=== PATIENT | male | born 1985 | race Caucasian/White ===

== ENCOUNTER 2017-02-03 05:57 | Day surgery (SDC) | payer OTHER, MEDICAID ==
[~2017-02-03] VITALS: Ht 177.8 cm; Wt 92.4 kg
[~2017-02-03 05:57] MED LIST: AMPH20CA PO; BENZ2AMP2 PO; DIVA500T4 PO; DIVA500T55 PO; FLUV100T2 PO; FLUV50TA2 PO; LORA10TA7 PO; NEOM30OI18 TOP; QUET100T PO; RISP2TAB22; SODI30SP3; [UNRECOGNIZED DRUG - CODE] TOP
--- OUTSIDE RECORDS SUMMARY | 2017-02-03 06:01 | XMS REPORT | Continuity of Care Document ---
Author Author [facility] Organization [facility] Address Unknown Phone Unavailable Allergies Active Description Code Type Severity Reaction Onset Reported/Identified Relationship to Patient Clinical Status Yes CECLOR CECLOR Drug Allergy Unknown RASH/SWELLING 01/09/2009 Yes NO KNOW CONTRAST MEDIA ALLERGY NO KNOW CONTRAST MEDIA ALLERGY Drug Allergy Unknown N/A 2008 Yes No Known Food Allergies No Known Food Allergies Drug Allergy Unknown N/A 01/09/2009 Yes No Known Other Allergies No Known Other Allergies Drug Allergy Unknown N/A 01/09/2009 Yes ORAP ORAP Drug Allergy Unknown RASH 01/09/2009 Yes SULFA DRUGS SULFA DRUGS Drug Allergy Unknown REDNESS/ SWELLING 01/09/2009 Yes ZOLOFT ZOLOFT Drug Allergy Unknown N/A 01/09/2009 Yes Sulfa (Sulfonamide Antibiotics Drug Allergy UNKNOWN 06/01/2011 Yes Sulfa (Sulfonamide Antibiotics Drug Allergy N/A UNKNOWN 06/01/2011 Yes cefaclor cefaclor Drug Allergy Unknown N/A 09/01/2012 Yes pimozide pimozide Drug Allergy Unknown N/A 09/01/2012 Yes sertraline HCl sertraline HCl Drug Allergy Unknown N/A 09/01/2012 Yes Sulfa (Sulfonamide Antibiotics) Sulfa (Sulfonamide Antibiotics) Drug Allergy Unknown N/A 09/01 Yes Ceclor Drug Allergy Eczema (rash) 11/02/2012 Yes Ceclor Drug Allergy N/A Eczema (rash) 11/02/2012 Yes No Known Food Allergies Food Allergy 11/02/2012 Yes No Known Food Allergies Food Allergy N/A N/A 11/02/2012 Yes cefaclor NKMA N/A Eczema (rash) 02/21/2014 Yes sulfamethoxazole NKMA N/A UNKNOWN 02/21/2014 Yes Sulfa (Sulfonamide Antibiotics) Sulfa (Sulfonamide Antibiotics) Drug Allergy Mild RASH 2015 Yes cefaclor cefaclor Drug Allergy Unknown RASH 11/12/2015 Yes pimozide pimozide Drug Allergy Unknown RASH 11/12/2015 Yes sertraline HCl sertraline HCl Drug Allergy Unknown RASH 11/12/2015 Yes Orap NKMA N/A N/A 06/27/2016 Medications Problems Date Dx Coded Attending Type Code Diagnosis Diagnosed By 09/22/2012 Jose F Aviles MD Final 299.00 AUTISTIC DISORD-CURRENT 09/22/2012 Jose F Aviles MD Final 787.03 VOMITING ALONE 11/02/2012 Clementina Mcnally DDS Final 319 INTELL DISABILITIES NOS 11/02/2012 Clementina Mcnally DDSn Final 521.00 DENTAL CARIES NOS Procedures Code [place] [address] DENTAL SURGERY PROCEDURE Clementina Mcnally DDS 11/02/2012 Results Encounters ACCT No. Visit Date/Time Discharge Status Pt. Type Provider Facility Loc./Unit Complaint [id number] 11/02/2012 07:14:00 2012 13:35:00 DIS Outpatient Clementina Mcnally DDS [facility] on [address] [id number] 09/22/2012 21:16:00 2011 21:45:00 DIS Emergency Jose F Aviles MD [facility] on [facility]
--- OUTSIDE RECORDS SUMMARY | 2017-02-03 06:02 | XMS REPORT | Referral Summary ---
Author Author [facility] Organization [facility] Address Unknown Phone Unavailable Care Team Providers Care Masticator Name Role Phone No PCP, [facility] Primary Care Physician [phone] Encounter VC Date(s): 02/24/16 - 02/24/16 [facility] [address] [id number] Discharge Diagnosis: External hordeolum Discharge Disposition: 01-Home or Self Care Attending Physician: Micaela Sanchez Attending Physician: Provider, Immediate Care Admitting Physician: Provider, Immediate Care Vital Signs Most recent to 1 oldest [Reference Range]: Respiratory Rate 18 br/min [14-20 br/min] (02/24/16 4:24 PM) Blood Pressure 144/88 mmHg [90-140/60-90 mmHg] *HI* (02/24/16 4:24 PM) Problem List No data available for this section Allergies, Adverse Reactions, Alerts Substance Reaction Severity Status cefaclor Eczema (rash) Active sulfamethoxazole UNKNOWN Active Medications Adderall XR Oral, qAM, 0 Refill(s) Start Date: 02/24/16 Status: Ordered Augmentin 875 mg-125 mg oral tablet 1 tabs, Oral, q12hr, X 10 days, # 20 tabs, 0 Refill(s), Pharmacy: [facility] Start Date: 02/24/16 Stop Date: 03/05/16 Status: Ordered Claritin mg, 0 Refill(s) Start Date: 02/24/16 Status: Ordered clindamycin 0 Refill(s) Start Date: 02/24/16 Status: Ordered Cogentin 0 Refill(s) Start Date: 02/24/16 Status: Ordered Depakote ER mg, Oral, Daily, 0 Refill(s) Start Date: 02/24/16 Status: Ordered Differin Topical, Bedtime (once a day), 0 Refill(s) Start Date: 02/24/16 Status: Ordered Luvox CR 100 mg oral capsule, extended release mg caps, Oral, Bedtime (once a day), 0 Refill(s) Start Date: 02/24/16 Status: Ordered RisperDAL Oral, BID, 0 Refill(s) Start Date: 02/24/16 Status: Ordered SEROquel Oral, 0 Refill(s) Start Date: 02/24/16 Status: Ordered Results No data available for this section Immunizations No data available for this section Procedures No data available for this section Social History Social History Type Response Smoking Status Never smoker Assessment and Plan Extracted from: Title: Office Visit Note Author: Micaela Sanchez Date: 02/24/16 Assessment/Plan 1.External hordeolum warm compress to area 3-4 x daily x 2-3 days . Will send augmentin for concern for possible cellulitis. Instructed staff on medication, use, common side effects, and administration. Discussed proper OTC medication, including Tylenol or ibuprofen, for symptomatic relief. Instructed staff if symptoms worsen or new symptoms arise to seek medical attention here or at the ER.Instructed staff if symptoms do not improve or worsen follow up with PCP in 2-3 days.Staff voiced understanding and agreed with treatment plan. Patient dismissed in stable condition. Ordered: Office Visit Level 3 Est 71160 Orders: amoxicillin-clavulanate, 1 tabs, Oral, q12hr, X 10 days, # 20 tabs, 0 Refill(s), Pharmacy: [facility] Extracted from: Title: Ambulatory Patient Education Author: Micaela Sanchez Date: 02/24/16 Ophthalmology Stye A stye is a bump on your eyelid caused by a bacterial infection. A stye can form inside the eyelid (internal stye) or outside the eyelid (external stye). An internal stye may be caused by an infected oil-producing gland inside your eyelid. An external stye may be caused by an infection at the base of your eyelash (hair follicle). Styes are very common. Anyone can get them at any age. They usually occur in just one eye, but you may have more than one in either eye. CAUSES The infection is almost always caused by bacteria called Staphylococcus aureus. This is a common type of bacteria that lives on your skin. RISK FACTORS You may be at higher risk for a stye if you have had one before. You may also be at higher risk if you have: Diabetes. Long-term illness. Long-term eye redness. A skin condition called seborrhea. High fat levels in your blood (lipids). SIGNS AND SYMPTOMS Eyelid pain is the most common symptom of a stye. Internal styes are more painful than external styes. Other signs and symptoms may include: Painful swelling of your eyelid. A scratchy feeling in your eye. Tearing and redness of your eye. Pus draining from the stye. DIAGNOSIS Your health care provider may be able to diagnose a stye just by examining your eye. The health care provider may also check to make sure: You do not have a fever or other signs of a more serious infection. The infection has not spread to other parts of your eye or areas around your eye. TREATMENT Most styes will clear up in a few days without treatment. In some cases, you may need to use antibiotic drops or ointment to prevent infection. Your health care provider may have to drain the stye surgically if your stye is: Large. Causing a lot of pain. Interfering with your vision. This can be done using a thin blade or a needle. HOME CARE INSTRUCTIONS Take medicines only as directed by your health care provider. Apply a clean, warm compress to your eye for 10 minutes, 4 times a day. Do not wear contact lenses or eye makeup until your stye has healed. Do not try to pop or drain the stye. SEEK MEDICAL CARE IF: You have chills or a fever. Your stye does not go away after several days. Your stye affects your vision. Your eyeball becomes swollen, red, or painful. MAKE SURE YOU: Understand these instructions. Will watch your condition. Will get help right away if you are not doing well or get worse. This information is not intended to replace advice given to you by your health care provider. Make sure you discuss any questions you have with your health care provider. Document Released: 07/20/2006 Document Revised: 07/29/2015 Document Reviewed: [facility] Patient Information 2015 [employer] [facility]. No follow up information was provided.
--- OUTSIDE RECORDS SUMMARY | 2017-02-03 06:02 | XMS REPORT | Referral Summary ---
Author Author [facility] Organization [facility] Address Unknown Phone Unavailable Care Team Providers Care Food And Beverage Checker Name Role Phone No PCP, [facility] Primary Care Physician [phone] Encounter VC Date(s): 06/27/16 - 06/27/16 [facility] [address] [id number] Discharge Diagnosis: Hx of hematuria Discharge Disposition: 01-Home or Self Care Attending Physician: Provider, Immediate Care Attending Physician: Shahrzad Mejia PA-C Admitting Physician: Provider, Immediate Care Vital Signs Most recent to 1 oldest [Reference Range]: Peripheral Pulse 87 bpm Rate [60-100 bpm] (06/27/16 1:38 PM) SpO2 98 % (06/27/16 1:38 PM) Problem List No data available for this section Allergies, Adverse Reactions, Alerts Substance Reaction Severity Status cefaclor Eczema (rash) Active Orap Active sulfamethoxazole UNKNOWN Active Medications Adderall XR Oral, qAM, 0 Refill(s) Start Date: 02/24/16 Status: Ordered Augmentin 875 mg-125 mg oral tablet 1 tabs, Oral, q12hr, X 7 days, # 14 tabs, 0 Refill(s), Pharmacy: [facility] [id number] Start Date: 06/27/16 Stop Date: 07/04/16 Status: Ordered Claritin mg, 0 Refill(s) Start [...] Extracted from: Title: Office Visit Note Author: Shahrzad Mejia PA-C Date: 06/27/16 Assessment/Plan 1.Hx of hematuria Patient was unable to give urine due to combative behaviors. At this point because of the patients reported blood in the urine we willstart him on Augmentin 875 twice a day for 7 days. I discussed in length with the caregiver that if this is not improving orsymptoms persist within the next 24-48 hours he needs to be immediatelyseen back by his primary care physician. They may have to do a catheter to obtaina urine sample withmore assistance. She voices understanding of the plan and follow- up instructions. Any further concernsshe can contact the clinic and again was encouraged to follow up with primary care physicianas directed Ordered: Office Visit Level 3 Est 65083 Orders: amoxicillin-clavulanate, 1 tabs, Oral, q12hr, X 7 days, # 14 tabs, 0 Refill(s), Pharmacy: [facility] [id number]
[2017-02-03 06:44] VITALS: Ht 177.8 cm; Wt 92.4 kg
[2017-02-03 06:46] VITALS: RESP 16
[2017-02-03 06:49] VITALS: BP 130/86; PULSE 84; RESP 16; TEMP 97; O2SAT 98
[2017-02-03] MEDS ORDERED: FLUV100T2 PO (06:56)
[2017-02-03] MEDS ORDERED: TRAZ150T80 (06:57)
[2017-02-03] MEDS ORDERED: LR 1,000 ML IV SCH (07:00)
[2017-02-03] MEDS ORDERED: LIDOCAINE 1% (10mg/ml) 2ml SDV INJ ONE (07:00)
[2017-02-03] MEDS ORDERED: KETAMINE 500mg/10ml INJECTION ONE (07:30)
[2017-02-03] MEDS ORDERED: ROCURONIUM 50mg/5ml INJECTION IV ONE (07:34)
[2017-02-03] MEDS ORDERED: PROPOFOL 200mg 20 ML IV ONE (07:34)
[2017-02-03] MEDS ORDERED: GLYCOPYRROLATE 0.4mg/2ml INJECTION ONE (07:38)
[2017-02-03] MEDS ORDERED: LIDOCAINE (2%) 100 MG/5 ML PF SYRINGE IV ONE (07:43)
[2017-02-03] MEDS ORDERED: LIDOCAINE JELLY 2% 30ml TUBE ONE (07:43)
[2017-02-03] MEDS ORDERED: FENTANYL 100mcg/2ml INJECTION ONE (07:45)
--- NOTE | 2017-02-03 07:52 | ANESPREOP ---
Anesthesia Record Date and Time DATE: 02/03/17 TIME: 07:49 Proposed Surgical Procedure DENTAL REHABILITAION Allergies: Coded Allergies: Sulfa (Sulfonamide Antibiotics) (Verified Allergy, Mild, 02/03/17) cefaclor (Verified Allergy, Mild, 02/03/17) pimozide (Verified Allergy, Mild, 02/03/17) sertraline (Verified Allergy, Mild, 02/03/17) Ht/Wt/BMI Height: 5 ' 10.00 " Weight: 92.400 kg BMI: 29.2 kg/m2 Vital Signs Date Time Temp Pulse Resp B/P Pulse Ox O2 Delivery O2 Flow Rate FiO2 02/03/17 06:49 97.0 84 16 130/86 98 Room Air Medications Inpatient Medications Current Medications Medications (Trade) Dose Ordered Sig/[place] Start Time Stop Time Status Last Admin Dose Admin Lactated Ringer's (Lactated Ringers) 1,000 ml @ 25 mls/hr Q24H 02/03/17 07:00 Benztropine Mesylate (Cogentin) 2 Mg/2 Ml Ampul, TAB PO BID, (Reported) Last Taken: on 02/02/171999 Clindamycin Phosphate (Clindamycin Phosphate) 1 Each Med..swab, TOP DAILY, (Reported) Last Taken: on 02/02/17 0800 Dextroamphetamine/Amphetamine (Adderall Xr 20 mg Capsule) 20 Mg Cap.er.24h, 1 CAP PO DAILY, (Reported) Last Taken: on 02/02/17 0800 Divalproex Sodium (Divalproex Sodium ER) 500 Mg Tab.er.24h, 2 TAB PO BID, (Reported) Last Taken: on 02/02/171999 Fluvoxamine Maleate (Fluvoxamine Maleate) 100 Mg Tablet, 1 TAB PO BID, (Reported) Last Taken: on 02/02/171999 Loratadine (Loratadine) 10 Mg Tablet, 10 MG PO HS, (Reported) Last Taken: on 02/02/171999 Neomycn/Baci Zn/Pmyx Bs/Pramox (Triple Antibiotic Plus Oint) 28.4 Gm Oint...g., TOP BID, (Reported) Last Taken: on 02/02/171999 Quetiapine Fumarate (Seroquel) 100 Mg Tablet, 200 MG PO HS, (Reported) Take 1 tablet, by mouth, once daily at bedtime. Last Taken: on 02/02/171999 Risperidone (Risperidone) 2 Mg Tablet, TID, ( Reported) Last Taken: on 02/02/17 1700 Sodium Chloride (Saline Nasal Houck) 30 Ml [place], QID, (Reported) Last Taken: on 02/02/171999 Trazodone HCl (Trazodone HCl) 150 Mg Tablet, PRN, (Reported) Last Taken: on 02/01/17 2100 Discontinued Medications Fluvoxamine Maleate (Fluvoxamine Maleate) 100 Mg Tablet, 100 MG PO HS, (Reported ) Currently on Beta Tre: No Medical/Surgical History Anesthesia PMH: Denies: Anesthesia Reactions (no family reactions / sedated for dental work with no problems), Cancer, Clotting Problems, Glaucoma, Malignant Hyperthermia, Sleep Apnea Smoking Status: Never smoker Has pt. smoked today?: No Use Chewing Tobacco?: No Second Hand Exposure: No Substance Use Type: does not use Past Surgical History Orthopedic Surgeries: Abdominal Surgeries: Genitourinary Surgeries: Cardiac Surgeries: Endocrine Surgeries: Reproductive Surgeries: Neurological Surgeries: Ear Surgeries: Nose Surgeries: Throat Surgeries: Other Surgeries: Yes - dental surgeries Anesthesia Adverse Reactions: FOUND confusion Hx of Motion Sickness: No Pertinent Findings EKG Rhythm: Sinus Rhythm Physical Exam Respiratory: Bilat breath sounds equal, Lungs clear Cardiovascular: FOUND Regular rate, rhythm, FOUND No murmur Airway Assessment Mallampati Score: I Neck Extension: Good Overall Assessment: No Airway Concerns ASA: 2 Plan Anesthesia Plan: GETA Discussion Discussed risks/options/alternatives of anesthesia and questions answered. Patient consents. Nursing pain assessment noted. Present: Parent Attestation Statement Prior to the delivery of any anesthetic medication, I examined the patient, developed the plan, obtained the patient's consent and discussed the risk and benefits of the procedure with the patient/guardian. PRIYA CORREA MD Feb 03, 2017 07:52
[2017-02-03 08:37] LABS: BASOPHILS % (AUTO) 0.6 % (0-2); EOSINOPHILS # (AUTO) 0.2 T/MM3 (0-0.5); EOSINOPHILS % (AUTO) 2.5 % (0-4); HCT - HEMATOCRIT 44.2 % (41-53); HGB - HEMOGLOBIN 14.8 GM/DL (13.5-17.5); LYMPHOCYTES # (AUTO) 3.5 T/MM3 (1-4.8); LYMPHOCYTES % (AUTO) 51.3 % (23-45); MEAN CORPUSCULAR HGB 30.3 UUG (26-34); MEAN CORPUSCULAR HGB CONC(MCHC 33.5 GM/DL (31-37); MEAN CORPUSCULAR VOLUME 90.4 UM3 (80-100); MEAN PLATELET VOLUME 10.6 UM3 (9.4-12.4); MONOCYTES # (AUTO) 0.7 T/MM3 (0-0.8); MONOCYTES % (AUTO) 10.9 % (0-9.0); NEUTROPHILS #(AUTO)-ABSOLUTE 2.4 T/MM3 (1.8-7.7); NEUTROPHILS % (AUTO) 34.7 % (33-66); RED BLOOD COUNT 4.89 M/MM3 (4.50-5.90); WBC - WHITE BLOOD COUNT 6.8 T/MM3 (4.5-11.0)
[2017-02-03 08:45] LABS: ALBUMIN 4.1 G/DL (3.5-5.0); ALKALINE PHOSPHATASE 53 U/L (38-126); ALT (SGPT) 47 U/L (21-72); ANION GAP 16 MEQ/L (5-15); AST (SGOT) 51 U/L (17-59); BUN/CREATININE RATIO 19 RATIO (6-26); CALCIUM 9.4 MG/DL (8.4-10.2); CHLORIDE 104 MEQ/L (98-107); CO2 - CARBON DIOXIDE 25 MEQ/L (22-30); CREATININE 0.8 MG/DL (0.8-1.5); GLOMERULAR FILTRATION RATE 113; GLUCOSE 87 MG/DL (75-110); POTASSIUM 4.5 MEQ/L (3.6-5); SODIUM 145 MEQ/L (134-144); TOTAL PROTEIN 8.1 G/DL (6.3-8.2)
[2017-02-03] MEDS ORDERED: ONDANSETRON 4mg/2ml INJECTION ONE (10:16)
[2017-02-03] MEDS ORDERED: LACRI-LUBE EYE OINT 3.5 G TUBE ONE (10:16)
[2017-02-03 10:28] VITALS: BP 154/69; PULSE 97; RESP 20; TEMP 96.8; O2SAT 91
[2017-02-03 11:00] VITALS: PULSE 88; RESP 20; O2SAT 97
--- NOTE | 2017-02-03 12:00 | ANESPO ---
Post-Op Note Date 02/03/17 Time: 12:00 Status Pt Participated in Evaluation: Pt participated in person Vital Signs Date Time Temp Pulse Resp B/P Pulse Ox O2 Delivery O2 Flow Rate FiO2 02/03/17 06:49 97.0 84 16 130/86 98 Room Air Respiratory Function: Airway patent Mental Status: Alert/oriented Pain Level Intensity: 0 Hydration: Taking po fluids Complications during Recovery None apparent Follow-Up Instructions Instructions Per Surgeon LINO JAIME CRNA Feb 03, 2017 12:00
[2017-02-04 00:51] LABS: LDL CHOLESTEROL,CALCULATED 75.4 (66-159); RISK FACTOR 3.5 RATIO (0-5.0); VLDL CHOLESTEROL 30.6 MG/DL (0-28)
== END 2017-02-03 12:10 | disposition home or self-care (01) ==
LOC: NSC 05:57
PROVIDERS: ATTEND Dentist General Practice
DX: K02.9 Dental caries, unspecified (principal); F84.0 Autistic disorder; F90.9 Attention-deficit hyperactivity disorder, unspecified type
CPT/HCPCS: 41899; 80053; 80061; 85025; J2405; J2704; J3010